=== PATIENT | male | born 1970 | race Caucasian/White ===

== ENCOUNTER 2024-01-27 20:55 | Emergency (ER) | payer MEDICAID, SELFPAY ==
[2024-01-27] VITALS (29 sets, daily range): BP systolic 60–157; BP diastolic 16–80; PULSE 0–124; RESP 18–47; TEMP 33.2–35; O2SAT 0–94; BMI 38.9; BMI 29.2
[2024-01-27] MEDS: 0.9% Normal Saline (500mL Bag) 500 ML 999 ML IV (20:58)
--- NOTE | 2024-01-27 21:10 | CT_ITS ---
We are attempting to reach an attending provider to discuss findings. An addendum with communication details will be sent when the communication is complete. INDICATION: headache, collapse/LOC EXAMINATION: CT BRAIN - CT Head or Brain W/O Contrast Injection TECHNIQUE: Multiple axial images were obtained of the head without intravenous contrast. A radiation dose optimization technique was used for this scan. IV Contrast dosage and agent: None. COMPARISON: None FINDINGS: Endotracheal and enteric tubes partially seen BRAIN PARENCHYMA: Left frontal temporal subdural hematoma up to 6 mm in thickness. Diffuse bilateral frontal subarachnoid hemorrhage and right sylvian fissure subarachnoid hemorrhage. There is general lack of young-white matter differentiation. Suprasellar aneurysm coiling noted. Right frontal ventricular shunt noted. Ventricles are completely effaced. Suprasellar cisterns are effaced. No cervical tonsillar herniation. 4 mm [id number] midline shift. CALVARIUM, SKULL BASE, PARANASAL SINUSES AND MASTOID AIR CELLS:No acute osseous finding. Paransasal sinuses are clear. Mastoid air cells are clear. ORBITS: Both globes, extraocular muscles, optic nerves and retrobulbar fat appear unremarkable. ASPECTS Score for Acute Strokes: 10 CT/Brain/Head without Contrast IMPRESSION: Left frontotemporal subdural hematoma 6 mm in thickness with scattered subarachnoid hemorrhage along the bilateral anterior frontal lobes and right sylvian fissure. Diffuse loss of young-white matter differentiation concerning for anoxic brain injury. Diffuse effacement of sulci, ventricles, suprasellar cisterns consistent with increased intracranial pressure with 4 mm [id number] midline shift. Right ventricular shunt noted. Suprasellar aneurysm coils. Electronically Signed: Mina Brice MD at 21:59 EDT ,
[2024-01-27] MEDS: Epinephrine (1 mg/ml) 1 MG in 0.9% Normal Saline (250mL Bag) 250 ML 71.7 MG CONT INF (21:11)
--- NOTE | 2024-01-27 21:21 | EDS_ITS ---
HPI History of Present Illness Chief Complaint: CPR Informant: EMS Onset/Context/Timing Onset: Today Narrative Narrative: 53-year-old male was apparently [place] music [place] complained of a sudden headache and then collapsed. There was bystander CPR for 60 minutes before EMS showed up as well as AED that was not recommending shock, and detected that the patient was in asystole. He responded to epinephrine multiple times, EMS gave him several doses as well as a an amp of IV bicarbonate prior to arrival, but they lost pulses multiple times as well. Police state they found a white powdery substance in his wallet. They state it is not methamphetamine. Later, they got back to us after doing some analysis, and told us it came back as MDMA. [facility] Medical History (Updated 01/27/24 @ 22:[address] Janes Walker MD) Brain aneurysm Hypertension KIM (obstructive sleep apnea) Allergy/AdvReac Type Severity Reaction Status Date / Time Unable to Assess Allergy Verified 01/27/24 20:56 Social History Smoking Status: Unknown if ever smoked ROS ROS ED Review of Systems ROS Unobtainable: due to mental status EXAM Physical Exam Const Vital Signs: 01/27/24 21:43 01/27/24 22:29 01/27/24 21:15 Temperature 95 F L Temperature Source Temporal Pulse Rate 96 Pulse Rate [1] Pulse Rate [2] Pulse Rate [3] Pulse Rate [4] Pulse Rate [5] Pulse Rate [6] Pulse Rate [7] Pulse Rate [8] Pulse Rate [9] Respiratory Rate 24 H Respiratory Rate [2] Respiratory Rate [5] Respiratory Rate [7] Respiratory Effort Normal Non-Labored Respiratory Depth Normal Respiratory Pattern Normal Blood Pressure Blood Pressure [2] Blood Pressure [4] Blood Pressure [5] Blood Pressure [7] Blood Pressure Mean Pulse Ox 94 Oxygen Delivery Method Fraction of Inspired Oxygen (FIO2) 100 01/27/24 21:15 01/27/24 22:40 01/27/24 22:45 Temperature Temperature Source Pulse Rate 79 86 Pulse Rate [1] 0 L Pulse Rate [2] 70 Pulse Rate [3] 39 L Pulse Rate [4] 40 L Pulse Rate [5] 22 L Pulse Rate [6] 22 L Pulse Rate [7] 66 Pulse Rate [8] 26 L Pulse Rate [9] 78 Respiratory Rate 47 H 20 H Respiratory Rate [2] 30 H Respiratory Rate [5] 30 H Respiratory Rate [7] 30 H Respiratory Effort Respiratory Depth Respiratory Pattern Blood Pressure 124/65 H 141/69 H Blood Pressure [2] 60/40 L Blood Pressure [4] 106/28 L Blood Pressure [5] 90/52 L Blood Pressure [7] 82/16 L Blood Pressure Mean 82 89 Pulse Ox Oxygen Delivery Method Ambu-Bag Fraction of Inspired Oxygen (FIO2) 01/27/24 22:50 01/27/24 22:55 01/27/24 23:00 Temperature Temperature Source Pulse Rate 82 82 104 H Pulse Rate [1] Pulse Rate [2] Pulse Rate [3] Pulse Rate [4] Pulse Rate [5] Pulse Rate [6] Pulse Rate [7] Pulse Rate [8] Pulse Rate [9] Respiratory Rate 24 H 31 H 20 H Respiratory Rate [2] Respiratory Rate [5] Respiratory Rate [7] Respiratory Effort Respiratory Depth Respiratory Pattern Blood Pressure 137/62 H 123/59 H 132/60 H Blood Pressure [2] Blood Pressure [4] Blood Pressure [5] Blood Pressure [7] Blood Pressure Mean 84 77 80 Pulse Ox Oxygen Delivery Method Fraction of Inspired Oxygen (FIO2) 01/27/24 23:05 01/27/24 23:10 01/27/24 23:10 Temperature Temperature Source Pulse Rate 107 H 103 H 103 H Pulse Rate [1] Pulse Rate [2] Pulse Rate [3] Pulse Rate [4] Pulse Rate [5] Pulse Rate [6] Pulse Rate [7] Pulse Rate [8] Pulse Rate [9] Respiratory Rate 23 H 20 H 20 H Respiratory Rate [2] Respiratory Rate [5] Respiratory Rate [7] Respiratory Effort Respiratory Depth Respiratory Pattern Blood Pressure 145/67 H 146/68 H Blood Pressure [2] Blood Pressure [4] Blood Pressure [5] Blood Pressure [7] Blood Pressure Mean 87 89 Pulse Ox Oxygen Delivery Method Fraction of Inspired Oxygen (FIO2) 01/27/24 23:15 01/27/24 23:20 01/27/24 23:25 Temperature Temperature Source Pulse Rate 102 H 105 H 108 H Pulse Rate [1] Pulse Rate [2] Pulse Rate [3] Pulse Rate [4] Pulse Rate [5] Pulse Rate [6] Pulse Rate [7] Pulse Rate [8] Pulse Rate [9] Respiratory Rate 26 H 19 H 27 H Respiratory Rate [2] Respiratory Rate [5] Respiratory Rate [7] Respiratory Effort Respiratory Depth Respiratory Pattern Blood Pressure 126/55 H 152/72 H 157/77 H Blood Pressure [2] Blood Pressure [4] Blood Pressure [5] Blood Pressure [7] Blood Pressure Mean 74 93 97 Pulse Ox Oxygen Delivery Method Fraction of Inspired Oxygen (FIO2) 01/27/24 23:30 01/27/24 23:35 01/27/24 23:40 Temperature Temperature Source Pulse Rate 107 H 102 H 105 H Pulse Rate [1] Pulse Rate [2] Pulse Rate [3] Pulse Rate [4] Pulse Rate [5] Pulse Rate [6] Pulse Rate [7] Pulse Rate [8] Pulse Rate [9] Respiratory Rate 37 H 22 H 22 H Respiratory Rate [2] Respiratory Rate [5] Respiratory Rate [7] Respiratory Effort Respiratory Depth Respiratory Pattern Blood Pressure 155/80 H 103/55 L 142/67 H Blood Pressure [2] Blood Pressure [4] Blood Pressure [5] Blood Pressure [7] Blood Pressure Mean 99 69 89 Pulse Ox Oxygen Delivery Method Fraction of Inspired Oxygen (FIO2) 01/27/24 23:45 01/27/24 23:50 01/27/24 23:54 Temperature Temperature Source Pulse Rate 106 H 100 95 Pulse Rate [1] Pulse Rate [2] Pulse Rate [3] Pulse Rate [4] Pulse Rate [5] Pulse Rate [6] Pulse Rate [7] Pulse Rate [8] Pulse Rate [9] Respiratory Rate 32 H 18 27 H Respiratory Rate [2] Respiratory Rate [5] Respiratory Rate [7] Respiratory Effort Respiratory Depth Respiratory Pattern Blood Pressure 148/73 H 98/51 L 79/48 L Blood Pressure [2] Blood Pressure [4] Blood Pressure [5] Blood Pressure [7] Blood Pressure Mean 94 64 58 Pulse Ox Oxygen Delivery Method Fraction of Inspired Oxygen (FIO2) 01/27/24 23:55 01/27/24 23:57 01/28/24 00:00 Temperature Temperature Source Pulse Rate 95 99 92 Pulse Rate [1] Pulse Rate [2] Pulse Rate [3] Pulse Rate [4] Pulse Rate [5] Pulse Rate [6] Pulse Rate [7] Pulse Rate [8] Pulse Rate [9] Respiratory Rate 29 H 21 H 33 H Respiratory Rate [2] Respiratory Rate [5] Respiratory Rate [7] Respiratory Effort Respiratory Depth Respiratory Pattern Blood Pressure 97/53 L 66/44 L Blood Pressure [2] Blood Pressure [4] Blood Pressure [5] Blood Pressure [7] Blood Pressure Mean 67 51 Pulse Ox Oxygen Delivery Method Fraction of Inspired Oxygen (FIO2) Positive well nourished and well developed General Appearance ED: well developed and pallor Orientation / Consciousness: obtunded Exam Limitations: altered mental status HEENT normocephalic, atraumatic and cyanosis of lips/distal nose Eyes Pupil: fixed Positive for bilateral and not reactive Positive for bilateral Neck supple Resp Resp Narrative: No spontaneous respirations. Breath sounds are bilaterally with bagging. Cardio Cardio Narrative: No heart sounds. Central pulses palpable with CPR only. GI non-distended Palpation: soft Neuro Neuro Narrative: Obtunded and flaccid x4. GCS 3 T. Skin General Skin Exam: pallor Lesions: no lesions Rashes: no rashes MDM MDM MDM Narrative Medical decision making narrative: ACLS protocol followed, in between rounds we removed the LMA and intubated the patient see the procedure note. We performed multiple rounds of ACLS. We put him on an epinephrine drip, this had to be sent from pharmacy and it was requested upon the patient's arrival after EMS report that he was responding epinephrine very well. This took some time to arrive and in the meantime we gave him multiple rounds of epinephrine, he went back and forth from PEA to having rapid A-fib, sinus rhythm, sometimes with a pulse other times in PEA, he would occasionally bradycardia down to asystole and arrest again at which point we would restart CPR. Initially started the epinephrine drip at a low dose but ended up raising it all the way to 2 mcg/kg/min, however this was based on an estimate of 100 kg, after we were able to get the Thompson device off of him and some of the other hardware from the bed we used it to weigh him and he was actually heavier at 126 kg. We sent off blood work, but none of that has returned yet. He has been a GCS of 3T throughout his ED visit. At 1 point we were able to regain a pulse long enough to get him to CT while on the epinephrine drip and scan him for suspected subarachnoid hemorrhage, and reviewing the images myself it appears that he has a ROAD HOGGER OPERATOR shunt which we later confirmed after speaking with the girlfriend over the phone, and my interpretation of the scan is that he does have a subarachnoid hemorrhage, consistent with the history. He did arrest on the CT table just prior to scanning him, so we did perform a round of ACLS they are giving him another milligram of epinephrine. During ACLS earlier on, he was also given calcium chloride 1 amp, and I did a bedside ultrasound verifying that the patient had good left ventricular squeeze and no visible pericardial effusion although the view was relatively limited. I discussed with neurosurgery at [facility] Dr. Salmeron, who agrees with sending the patient to the ER as a level 1 and I called [facility] for transport. At this point he is on 200 mcg/min epinephrine drip, he has a blood pressure in the 90s and a heart rate in the 70-80 range, 1 view chest x-ray my interpretation showed good ETT placement, but it did settle down a centimeter from where I initially placed it, it was approaching the tarsha so I had respiratory pulled back 1 cm and I do not think we need to do a repeat x- ray emergently. He does not appear to have a pneumothorax on my interpretation or widened mediastinum. We did perform an EKG, it shows a sinus rhythm with significant ST depressions laterally, I do not see evidence of a STEMI, this is likely due to subendocardial ischemia due to downtime, hypoxemia, etc. At this time awaiting for [facility] to arrive and transport the patient, it is just before 2199, his arrest time was 2004. We were notified that weather conditions are not safe for flying, so we are awaiting a MICU ground unit, which will take approximately 2 hours to arrive. We did get an ABG back showing a pH in the 6.7 range, appearing to be a combination of both respiratory and metabolic acidosis. When we receive this, he had been bagged the entire time since we were trying to get him to CT and back, and was not on the ventilator at all. Subsequently we set him on the ventilator at a rate of 24, tidal volume 550, PEEP 5. Radiology called, discussed the fact that there is diffuse effacement of sulci and ventricles, indicating significant intracranial pressure due to likely anoxic brain injury. Therefore I am giving the patient mannitol, 50 g. Given the concentration of the epinephrine that we have which is 4 mcg/mL, and given the new actual weight of 126.6 kg, we were actually bolusing as fast as the machine would go which was 9 9 9 mL/h, which according to my math gave the patient 0.53 mcg/kg/min. He did well with this with regards to his vital signs maintaining his pulse around 100, and at 1 point his blood pressure actually went up to 148 systolic. Given this, we decreased the drip to half of the above, at which point he promptly dropped his blood pressure to 70/40s, and his heart rate came down to 90 before we doubled the drip back to 0.53 mcg/kg/min, which stabilized vital signs again. I did again discuss with Dr. Salmeron about mannitol given that it has been about 1.5 hours since we last gave it, he does not recommend redosing just IV fluids which we are doing more of. History & Record Review Discussion w/independent historian: Other (staff discussed w/ girlfriend) Additional record(s) reviewed:: No prior records Lab Data Attestation: I reviewed the patient's lab results. Labs: Laboratory Results - last 24 hr 01/27/24 01/27/24 01/27/24 21:00 21:15 21:50 WBC 9.6 RBC 4.60 Hgb 14.8 Hct 48.2 MCV 104.8 H MCH 32.2 H MCHC 30.7 L RDW Std Deviation 52.2 H RDW Coeff of Arleen 13.3 Plt Count 241 MPV 11.7 Immature Gran % (Auto) 3.900 H Neut % (Auto) 40.4 L Lymph % (Auto) 45.7 H [place] % (Auto) 7.8 Eos % (Auto) 1.4 Baso % (Auto) 0.8 Absolute Neuts (auto) 3.9 Absolute Lymphs (auto) 4.38 Nucleated RBC % 0.6 Sodium 139 Potassium 4.2 Chloride 97 L Carbon Dioxide 19.0 L Anion Gap 23 H BUN 17 Creatinine 1.65 H Estim Creat Clear Calc 71.78 Est GFR (MDRD) Af Amer 57 L Est GFR (MDRD) Non-Af 47 L BUN/Creatinine Ratio 10.3 Glucose 340 H Lactic Acid Cancelled Calcium 9.2 Troponin I High Sens 42 Urine Opiates Screen NEGATIVE Urine Methadone Screen NEGATIVE Ur Barbiturates Screen NEGATIVE Ur Phencyclidine Scrn NEGATIVE Ur Amphetamines Screen NEGATIVE MDMA (Ecstasy) Screen NEGATIVE U Benzodiazepines Scrn NEGATIVE Urine Cocaine Screen NEGATIVE U Cannabinoids Screen POSITIVE H Ur Drug Screen Comment Ethyl Alcohol < 3.0 ABG Data ABG results: ABG 01/27/24 22:03 Specimen Type ART Sample Site R Fem pH 6.79 L* Bicarbonate Actual 13.9 L Total CO2 17 Base Excess -21 L O2 Saturation 85 L O2 % 100.0 ABG pCO2 92.6 H* ABG pO2 96 Richard Test N/A O2 Delivery Device Bagging Vent Mode Not entered POC PEEP 10 Crit Call To/Read Back Yes Blood Gas Notified Whom masha Blood Gas Notified Time 22:04:41 Radiography Diagnostic Testing: Clinical Impression(s) from Imaging Studies Brain CT 01/27/24 21:10 IMPRESSION: Left frontotemporal subdural hematoma 6 mm in thickness with scattered subarachnoid hemorrhage along the bilateral anterior frontal lobes and right sylvian fissure. Diffuse loss of young-white matter differentiation concerning for anoxic brain injury. Diffuse effacement of sulci, ventricles, suprasellar cisterns consistent with increased intracranial pressure with 4 mm [id number] midline shift. Right ventricular shunt noted. Suprasellar aneurysm coils. Electronically Signed: Mina Brice MD at 21:59 EDT , ADDENDUM: 01/27/242207 IMPRESSION: Left frontotemporal subdural hematoma 6 mm in thickness with scattered subarachnoid hemorrhage along the bilateral anterior frontal lobes and right sylvian fissure. Diffuse loss of young-white matter differentiation concerning for anoxic brain injury. Diffuse effacement of sulci, ventricles, suprasellar cisterns consistent with increased intracranial pressure with 4 mm [id number] midline shift. Right ventricular shunt noted. Suprasellar aneurysm coils. N.B. : The above Results were Read Back by Mina Brice MD to Janes Walker MD, and understanding confirmed on 01/27/2024 22:01:39 (ET). Electronically Signed: Mina Brice MD at 21:59 EDT , Chest X-Ray 01/27/24 21:30 IMPRESSION: Support apparatus as above. No radiographic evidence of acute cardiopulmonary disease. Electronically Signed: Mina Brice MD at 22:30 EDT , I reviewed the images as I declared above, as well as interpretation which I agree with. Rhythm Strip Rhythm Strip: see above EKG Initial EKG: Attestation: I personally reviewed and interpreted this EKG as follows: Interpretation: Sinus Rhythm and S-T Depression (lat) Prior EKG tracings: not available for review Prior: No Prior Management Discussion w/another healthcare provider: Assistant Quality Manager (Dr. Poon, neurosurgery [facility]) and Radiologist Procedures Intubations Intubation Method: orotracheal (8.0F ETT, placed 24 cm at the lip, visualized with glide scope passing through the cords) Intubation Verification: Positive color change and Bilateral breath sounds confirmed Intubation Complications: no complications (1 view chest x-ray my interpretation shows good ETT placement just above the tarsha, but clinically 25 cm at the lip. Respiratory moved back 1 cm.) Critical Care Time Critical Care Time: Yes Critical care time (excluding procedures): 75-104 minutes (80 minutes, not including procedure time), Including time spent:, Discussing w/Patient &/or Family/Banquet Kitchen Supervisor, Discussing w/Consultants, Arranging Admission or Transfer and Performing Direct Patient Care at Bedside Discharge Plan Triage Chief Complaint: CPR ED Provider: Janes Walker Dx/Rx/DC Orders Clinical Impression: Subarachnoid hemorrhage, Subdural hemorrhage, Cardiopulmonary arrest with successful resuscitation, Anoxic brain injury, Subendocardial ischemia Primary Care Provider: Ricky Mota,Out of Referrals: Ricky Mota,Out of [Primary Care Provider] -
[2024-01-27] MEDS: 0.9% Normal Saline (1000mL) 1,000 ML 999 ML IV ×4 (21:23→23:59)
--- NOTE | 2024-01-27 21:30 | RAD_ITS ---
INDICATION: ETT EXAMINATION/TECHNIQUE: X-RAY - XR Chest 1 View COMPARISON: None. FINDINGS: LINES/DEVICES: Endotracheal tube tip noted at the cephalad margin of the study at the level the clavicles, 8 cm above the tarsha. Enteric tube is subdiaphragmatic in the stomach.. LUNGS: No consolidation, edema or effusion. No pneumothorax. MEDIASTINUM AND CARDIOVASCULAR STRUCTURES: Cardiac silhouette not enlarged. BONES AND SOFT TISSUES: Unremarkable. RAD/Chest 1 View (Portable) IMPRESSION: Support apparatus as above. No radiographic evidence of acute cardiopulmonary disease. Electronically Signed: Mina Brice MD at 22:30 EDT ,
[2024-01-27 21:44] LABS: Absolute Lymphocyte Count 4.38 X10^3/uL (0.83-4.51); Absolute Neutrophil Count 3.9 X10^3/uL (2.0-7.7); Basophil# 0.08 X10^3/uL; Basophil% 0.8 % (0-1); Eosinophil# 0.13 X10^3/uL; Eosinophils% 1.4 % (0-5); Hematocrit 48.2 % (40-54); Hemoglobin 14.8 g/dL (13.0-16.5); Lymphocyte # 4.38 X10^3/ul (0.83-4.51); Lymphocyte % 45.7 % (19-41); Mean Corp Hgb Conc 30.7 g/dL (32-36); Mean Corpuscular Hgb 32.2 pg (27.0-32.0); Mean Corpuscular Volume 104.8 fL (80-94); Mean Platelet Vol. 11.7 fl (6.2-12.0); Monocyte# 0.75 X10^3/uL; Monocyte% 7.8 % (0-10); NRBC Flagged by Analyzer 0.6 % (0-5); Neutrophil # 3.87 X10^3/uL (2.7-7.7); Neutrophil % 40.4 % (47-70); Platelet Count 241 K/mm3 (150-450); RBC Distribution Width CV 13.3 % (11.6-14.6); RBC Distribution Width SD 52.2 fl (35.1-43.9); White Blood Count 9.6 K/mm3 (4.4-11.0)
--- NOTE | 2024-01-27 21:44 | ED.RN ---
[address] CARMONA TO GIVE X1 0.5MG EPINEPHRINE PUSH [address] CARMONA TO GIVE X1 0.5MG EPINEPHRINE PUSH
[2024-01-27 22:07] LABS: Base Excess -21 mmol/L (-2 to +2); Bicarbonate 13.9 mmol/L (22-26); Blood Gas Specimen Type ART; Mode Not entered; O2 Delivery Device Bagging; PEEP 10; PO2 96 mmHG (75-100); SITE R Fem; SO2 85 % (95-99); Time Given 22:04:41; Total Carbon Dioxide 17 mmol/L; pCO2 92.6 mmHg (35-45); pH 6.79 (7.35-7.45)
[2024-01-27 22:12] LABS: Alcohol, Blood (Medical)-Serum < 3.0 mg/dL; Anion Gap 23 (5-15); BUN 17 mg/dL (7-18); BUN/Creat Ratio 10.3 RATIO (10-20); Calcium,Total 9.2 mg/dL (8.5-10.1); Chloride 97 mmol/L (98-107); Creatinine, Serum 1.65 mg/dL (0.70-1.30); EST Glomerular Filtration Rate 47 mL/min (>60); Est Glom Filt Rate - Afr Amer 57 mL/min (>60); Estimated Creatinine Clearance 71.78 ml/min; Glucose 340 mg/dL (74-106); Potassium 4.2 mmol/L (3.5-5.1); Sodium Level 139 mmol/L (136-145); Troponin-I HS 42 pg/mL (3.0-78.0)
[2024-01-27 22:12] LABS: Amphetamine Urine VISTA NEGATIVE (<1000 ng/mL); Barbiturate Urine VISTA NEGATIVE (< 200 ng/mL); Benzodiazepine Urine VISTA NEGATIVE (< 200 ng/mL); Cocaine Urine VISTA NEGATIVE (< 300 ng/mL); Ecstacy Urine VISTA NEGATIVE (< 500 ng/mL); Methadone Urine VISTA NEGATIVE (< 300 ng/mL); PCP Urine VISTA NEGATIVE (< 25 ng/mL); THC Urine VISTA POSITIVE (< 50 ng/mL); Vista UDS pH Range 5
[2024-01-27] MEDS: Mannitol 50gm/250ml 50 GM in Premixed Bag 1 BAG IV (22:15)
--- NOTE | 2024-01-27 22:15 | ED.RN ---
BOTH [facility] AND [facility] ARE UNABLE TO FLY DUE TO WEATHER
--- NOTE | 2024-01-27 22:20 | ED.RN ---
VERBAL ORDER TO RUN EPINEPHRINE DRIP AT 999ML/HR.
[2024-01-27] MEDS: Epinephrine (1 mg/ml) 1 MG in 0.9% Normal Saline (250mL Bag) 250 ML 999 MG CONT INF ×4 (22:37→23:25)
--- NOTE | 2024-01-27 22:46 | ED.RN ---
TOTAL OF 4500ML OF FLUID GIVEN SO FAR.
[2024-01-27] MEDS: Epinephrine (1 mg/ml) 1 MG in 0.9% Normal Saline (250mL Bag) 250 ML 500 MG CONT INF (23:47)
[2024-01-28] VITALS (37 sets, daily range): BP systolic 55–170; BP diastolic 25–89; PULSE 82–109; RESP 16–34; TEMP 32.9–34.7; O2SAT 86–95
[2024-01-28] MEDS: Epinephrine (1 mg/ml) 1 MG in 0.9% Normal Saline (250mL Bag) 250 ML 999 MG CONT INF ×4 (00:03→00:55)
--- NOTE | 2024-01-28 00:15 | ED.RN ---
VERBAL ORDER GIVEN BY DR. CARMONA TO CONTINUE TO KEEP EPINEPHRINE DRIP AT A RATE OF 999ML/HR UNTIL TRANSPORT GETS HERE D/T PTS HR, BP AND O2 LEVER DECREASING WHEN TRYING TO DECREASE RATE OF INFUSION. SEE MAR AND VS CHARTING.
--- NOTE | 2024-01-28 00:30 | ED.RN ---
Spoke to Rosmery from [facility], she reports that since patient is going to [facility] that they will not follow since [facility] is not in their network. Requests to be called once patient leaves so they can take him off their board.
[2024-01-28] MEDS: Pantoprazole Sodium 40 MG in 0.9% Normal Saline (100mL MB+) 100 ML 330 MG IV (01:25)
[2024-01-28] MEDS: Norepinephrine 8 MG in 0.9% Normal Saline (250mL Bag) 242 ML 9.4 MG CONT INF (02:15)
== END 2024-01-28 02:28 | disposition short-term general hospital (02) ==
PROVIDERS: Emergency Provider Emergency Medicine; Visit Provider Emergency Medicine
DX: I60.9 Nontraumatic subarachnoid hemorrhage, unspecified (principal); G93.1 Anoxic brain damage, not elsewhere classified; I46.9 Cardiac arrest, cause unspecified; I48.91 Unspecified atrial fibrillation; I24.89 Other forms of acute ischemic heart disease; I62.00 Nontraumatic subdural hemorrhage, unspecified; E87.4 Mixed disorder of acid-base balance; I10 Essential (primary) hypertension; G47.33 Obstructive sleep apnea (adult) (pediatric)
CPT/HCPCS: 31500; 36600; 70450; 71045; 80048; 80307; 80320; 82803; 84484; 85025; 92950; 93005; 94002; 94003; 96361; 96365; 96367; 96375; 99285; J7030; J7050; A4216; G0480; J2310